=== PATIENT | female | born 1975 | race Caucasian/White ===

== ENCOUNTER → 2016-11-29 | Outpatient (CLI) | payer OTHER ==
[~2016-11-29] MED LIST: CLIN1GEL TOP; DOXY100T PO; ONDA4TAB10 SL; OXYC-57 PO
[2016-11-29 14:32] LABS: HEMATOCRIT 35.8 % (37-47); MEAN CELL VOLUME 91.3 fL (80-100); MEAN CORPUSCULAR HEMOGLOBIN 32.4 pg (25-34); MEAN CORPUSCULAR HGB CONC 35.5 g/dl (32-36); MEAN PLATELET VOLUME 11.3 fL (7.4-10.4); PLATELET COUNT 244 K/uL (130-400); RED BLOOD COUNT 3.92 M/uL (4.2-5.4); WHITE BLOOD COUNT 7.62 K/uL (4.8-10.8)
[2016-11-29 15:22] LABS: ALT/SGPT 30 U/L (12-78); BLOOD UREA NITROGEN 8 mg/dl (7-18); BUN/CREATININE RATIO 11.2 (10-20); CARBON DIOXIDE 23 mmol/L (21-32); CHLORIDE 107 mmol/L (98-107); CREATININE 0.68 mg/dl (0.60-1.20); GLUCOSE 116 mg/dl (70-99); POTASSIUM 3.5 mmol/L (3.5-5.1); SODIUM 141 mmol/L (136-145)
[2016-11-29 15:25] LABS: ALKALINE PHOSPHATASE 78 U/L (45-117); AST/SGOT 14 U/L (15-37)
== END | disposition home or self-care (01) ==
LOC: C.LAB 12:41
PROVIDERS: ATTEND Internal Medicine
DX: R10.13 Epigastric pain (principal)

== ENCOUNTER 2017-07-23 06:05 | Emergency (ER) | payer OTHER ==
[~2017-07-23] VITALS: Ht 165.1 cm; Wt 86.2 kg
[~2017-07-23 06:05] MED LIST changes: -DOXY100T PO; -ONDA4TAB10 SL; -OXYC-57 PO
[2017-07-23 06:08] VITALS: TEMP 36.8; Ht 165.1 cm; Wt 86.2 kg
[2017-07-23] MEDS ORDERED: DOXY100T PO (06:40)
[2017-07-23] MEDS ORDERED: LIDO/EPINEPHRINE/SOD BICARB 20 ML VIAL INFIL ONE (07:15)
[2017-07-23] MEDS ORDERED: OXYC-57 PO (07:59)
[2017-07-23] MEDS ORDERED: ONDA4TAB10 SL (07:59)
--- NOTE | 2017-07-23 08:00 | EMERGENCY ROOM VISIT NOTE ---
ED Visit Note First contact with patient: 07:02 CHIEF COMPLAINT: Infection on the left axilla times 1-2 days HISTORY OF PRESENT ILLNESS: Patient is a 42-year-old white female who presents emergency department for evaluation of left axillary pain, swelling and redness over the last 1-2 days. She has a history of hidradenitis, and is followed by dermatology for this. She has had large excisions, multiple steroid injections and I&Ds of both of her axillary area. She states that she had an I&D performed on the right side by her hydrographic engineer about 1-1/2-2 weeks ago. She is on chronic doxycycline 100 mg daily, and topical clindamycin ointment. She performs bleach baths. Patient has noted increased left axillary pain, tenderness and swelling in the last 1-2 days. She called her hydrographic engineer, they could not get her in for almost a week. She denies any drainage or discharge from the area. No fever, chills or constitutional signs of illness. She is taken ibuprofen and applied heat to the area. She rates her pain a 4/ 10. She is confident that she has another abscess. She denies any history of MRSA. REVIEW OF SYSTEMS: Review of systems as per HPI. All other systems reviewed were negative. 10 systems reviewed. PMH: Electronic medical records are reviewed and summarized as above/below. See Problem List. SOCIAL HISTORY: Patient lives at home. Nonsmoker. Is employed as a nurse at our facility. PHYSICAL EXAM: Vital Signs: Reviewed Nurse's notes. CONSTITUTIONAL: Patient is a well-appearing 42-year-old white female who is awake and alert and in no acute distress. Vital signs are stable. INTEGUMENTARY: Examination of the left axilla notes chronic scarring consistent with hidradenitis. She has a erythematous, tender, fluctuant area superiorly that appears consistent with a subcutaneous abscess. There is no lymphangitic streaking appreciated. EMERGENCY DEPARTMENT COURSE: The patient was seen and assessed as above. Her old records are reviewed. She has a history of hidradenitis and has had multiple abscesses which require I&D. She was agreeable to proceed with I&D today. The left axilla was prepped with Betadine and draped sterilely. 1% plain buffered lidocaine was infiltrated over the area of maximal fluctuance for field block. Using sterile technique, the abscess was incised with a number 11 scalpel blade. Purulent and sebaceous material drained and more was expressed. Culture was obtained and is pending. Abscess was packed with one- inch Kerlix dipped in Betadine. Bulky, observe an dressing was applied. Patient reports that when she she experiences an acute abscess for which she has an I&D, they do not change or add to her antibiotic regimen. I feel that this is reasonable as the I&D will likely be curative. Patient will continue local wound care measures, warm compresses and dressing changes. She is comfortable removing the packing material. Culture is pending and we can contact her if she requires any change in her antibiotic therapy. She was advised to follow-up with her hydrographic engineer for further care and management. The patient does not have any evidence for septic joint, I do not suspect sepsis , cellulitis, necrotizing fasciitis or deep space infection. Medication reconciliation: I attest that I have personally reviewed the patient' s current medication list. Blood pressure screening : Patient was found to have normal blood pressure on screening and does not require follow-up. Problem List Medical Problems: (1) Costochondritis Status: Resolved (2) Hidradenitis suppurativa Status: Chronic (3) Lactic acid acidosis Status: Resolved (4) Leukocytosis Status: Resolved Current/Historical Medications Scheduled Doxycycline Hyclate (Doxycycline Hyclate), 1 TAB PO DAILY Scheduled PRN Ondasetron Odt (Zofran Odt), 4 MG SL Q6H PRN for Nausea or Vomiting Oxycodone/Acetaminophen 5MG/325MG (Percocet 5MG/325MG), 1-2 TABS PO Q4 PRN for Pain Allergies Coded Allergies: No Known Allergies (Unverified , 07/23/17) Vital Signs Date Time Temp Pulse Resp B/P (MAP) Pulse Ox O2 Delivery O2 Flow Rate FiO2 07/23/17 08:11 75 16 117/79 98 07/23/17 07:26 64 17 123/80 100 Room Air 07/23/17 06:08 36.8 75 18 141/87 98 Room Air Departure Information Impression Primary Impression: Abscess of left axilla Additional Impression: Hidradenitis suppurativa of left axilla Prescriptions Oxycodone/Acetaminophen 5MG/325MG (PERCOCET 5MG/325MG) Tab 1-2 TABS PO Q4 Y for Pain, #20 TAB For Initial Treatment Prov: Zoe Mcgrath PA 07/23/17 Ondasetron Odt (ZOFRAN ODT) 4 Mg Tab 4 MG SL Q6H Y for Nausea or Vomiting, #20 TAB Prov: Zoe Mcgrath PA 07/23/17 Referrals Osbaldo Hollis D.O. (PCP) Patient Instructions My [facility] Additional Instructions Percocet 5/325 mg: Take 1-2 pills every four hours for breakthrough pain. Avoid alcohol, operating machinery or dangerous equipment, working on ladders or roofs, DRIVING, or situations where being under the influence may be dangerous. It is recommended to use an [id number]-bvk-[id number] stool softener such as Colace, 100mg twice daily while taking this medication to avoid constipation. Zofran(odansetron) tablets 4mg: Take one and allow it to dissolve in your mouth every four to six hours as needed for nausea or vomiting. Ibuprofen(Motrin, Advil) may be used for fever or pain. Use 600mg every six hours as needed. Take with food. Avoid using more than 2400mg in a 24 hour period. Do not use 2400mg per day for more than three consecutive days without physician direction. Prolonged inappropriate use can lead to stomach upset or ulcers. (AND/OR) Acetaminophen(Tylenol) may be used for fever or pain. Use 1000mg every six hours as needed. Avoid using more than 3000mg in a 24 hour period. Warm compresses to the affected area 4 times daily for 15-20 minutes. Dressing changes daily, more often if the dressing becomes saturated or soiled. Packing removal in 48 hours. Rest and drink plenty of fluids. Continue current medications. Return to the ER for severe pain, persistent fevers, spreading redness, or any worsening of your condition. Follow up with your hydrographic engineer next week for a recheck of the current condition. Problem Qualifiers
[2017-07-23 08:11] VITALS: BP 117/79; PULSE 75; O2SAT 98
== END 2017-07-23 08:13 | disposition home or self-care (01) ==
LOC: C.EDB 06:06 → C.EDA 08:13
DX: L02.412 Cutaneous abscess of left axilla (principal); L73.2 Hidradenitis suppurativa; M79.622 Pain in left upper arm

== ENCOUNTER 2018-01-23 14:35 | Emergency (ER) | payer OTHER ==
[~2018-01-23] VITALS: Ht 165.1 cm; Wt 83.6 kg
[~2018-01-23 14:35] MED LIST changes: -CLIN1GEL TOP; +DOXY100T PO; +ONDA4TAB10 SL; +OXYC-57 PO
[2018-01-23 14:38] VITALS: TEMP 36.5; Ht 165.1 cm; Wt 83.6 kg
[2018-01-23] MEDS ORDERED: OXYCODONE/ACETAMINOPHEN 5-325 TAB PO ONE (15:15)
[2018-01-23] MEDS ORDERED: ONDANSETRON 4MG OD TAB PO ONE (15:15)
[2018-01-23] MEDS ORDERED: XYLOCAINE 1%/SOD BICARB 20 ML VIAL INFIL ONE (15:15)
[2018-01-23] MEDS ORDERED: DOXY100C2 PO (15:30)
[2018-01-23] MEDS ORDERED: VARE1PAK15 PO (15:30)
[2018-01-23] MEDS ORDERED: OXYC-57 PO (18:08)
[2018-01-23] MEDS ORDERED: ONDA4TAB46 PO (18:08)
[2018-01-23 18:16] VITALS: BP 122/82; PULSE 77; O2SAT 96
[2018-01-23] MEDS ORDERED: PERCOCET HOME PACK PO ONE (18:30)
[2018-01-23] MEDS ORDERED: ONDANSETRON HOME PACK 4MG OD TAB PO ONE (18:30)
--- NOTE | 2018-01-24 13:49 | EMERGENCY ROOM VISIT NOTE ---
ED Visit Note First contact with patient: 14:42 CHIEF COMPLAINT: I have pain and redness under my right arm. HISTORY OF PRESENT ILLNESS: Ms. Santos is an 42-year-old white female who ambulates into the ED accompanied by boyfriend complaining of a possible abscess in the right axillary area. Historically patient reports she has a history of Hidradenitis suppurativa with recurrent abscesses in the bilateral axillary areas. She is being followed by makeup instructor and is currently on daily doxycycline. Patient reports she noticed a hard tender area in right axillary area to days ago. She reports the lesion is is slowly getting larger, more painful and tender. She does not know of any skin injury preceding the redness and has not observed any drainage from the red area. Currently associated with this lesion she reports she has been having a constant pressure sensation that is becoming more sharp. She rates her discomfort 7/10. Her pain is nonradiating. Her pain worsens with palpation and the rubbing of her bra. She has not identified any alleviating factors related to the pain. She has been continued her current prescribed antibiotics and gupq-moi-hyvpwfq pain medications without relief of her discomfort. She denies any associated fevers, chills, sweats, other skin eruptions or skin color changes, upper respiratory tract symptoms, shortness of breath, chest pain , decreased appetite, nausea, vomiting, right upper extremity weakness/numbness/ tingling REVIEW OF SYSTEMS: As noted above in History of Present Illness; all body systems reviewed with the patient found to be negative unless noted above otherwise. PAST MEDICAL HISTORY: As previously noted. CURRENT MEDICATION: As previously noted and Chantix. ALLERGIES TO MEDICATION: Patient denies. SOCIAL HISTORY: Patient is currently employed; she feels safe in her home environment; she admits to tobacco and alcohol use. PHYSICAL EXAM: Vital Signs: Date Time Temp Pulse Resp B/P (MAP) Pulse Ox O2 Delivery O2 Flow Rate FiO2 01/23/18 18:16 77 18 122/82 96 Room Air 01/23/18 14:38 36.5 72 16 134/89 98 Room Air General: 42 year-old white female in moderate distress due to pain, nontoxic appearing, afebrile and hemodynamically stable. Neurological: Awake, alert and oriented to person, place and time. Answering questions appropriately and following commands. Skin: Warm, dry and pink. Right Axillary Area: There is an indurated area measuring approximately 4.3 cm diameter. The central portion of this and rare area is fluctuant with pointing but no drainage. There is a zone of inflammation around it but no lymphangitis. No axillary lymphadenopathy. Thorax: Lungs sounds are clear to auscultation and equal bilaterally with symmetrical chest wall movement. No wheezing, rales or rhonchi. No increased respiratory effort. Abdomen: Flat, soft and nontender. Positive bowel sounds in all quadrants. No guarding or rigidity. Right Upper Extremity: No gross bony deformity. No tenderness over the bony structures of the shoulder. Full range of motion of the shoulder. Distal pulses, sensation and strength is intact throughout the extremity. ED COURSE: Patient is assessed as noted above. Patient's medication list was reviewed. Prior to the procedure patient received 1 5/325 mg Percocet tablet by mouth and 8 mg of Zofran ODT. Incision and Drainage: Verbal consent was obtained after the risks and benefits were explained. The skin was prepped with betadine and a sterile field set. The area surrounding the abscess was anesthetized with 9.8 ml of 1% buffered lidocaine. The abscess cavity was incised with a scalpel. Approximately 5 mL of purulent material was drained from the abscess and more was expressed. Aerobic cultures were obtained and are currently pending. The abscess cavity was sharply dissected with iris scissors to break up loculations and a small amount of additional purulent drainage was expressed. Copious irrigation was performed using sterile saline. The abscess cavity was cleaned out with a cotton tip applicator dipped in Betadine. Hemostasis was achieved. Iodoform gauze packing was inserted into the abscess. A sterile dressing was applied. No complications and the patient tolerated the procedure well. Patient was educated about her condition and instructed on her treatment plan; she verbalized understanding and agreement with this plan. IMPRESSION: Abscess of the right axillary area. DISPOSITION: Patient discharged to home in stable condition accompanied by her boyfriend; prior to departure she was reassessed and subjectively reported she was feeling better and rated her discomfort 5/10. PLAN: Patient was encouraged to continue her antibiotics as prescribed. Patient was prescribed Percocet and Zofran and instructed on their use; the state database was checked and no red flags were noted and she was given appropriate narcotic precautions. Patient was encouraged to keep her bandage dry and intact for the next 48 hours. Patient was encouraged to follow-up with her PCP or makeup instructor or return to the ED in 36-48 hours for recheck and possible packing removal. Patient was educated on signs of infection and encouraged return to the ED for any development of worsening signs of infection including red streaking, fevers , increasing redness/swelling or any new/concerning symptoms.
== END 2018-01-23 18:23 | disposition home or self-care (01) ==
LOC: C.EDB 14:37 → C.EDD 18:23
DX: L02.411 Cutaneous abscess of right axilla (principal); Z79.2 Long term (current) use of antibiotics; Z79.899 Other long term (current) drug therapy; Z72.0 Tobacco use

== ENCOUNTER → 2018-05-29 | Outpatient (CLI) | payer OTHER ==
[~2018-05-29] MED LIST changes: +DOXY100C2 PO; -DOXY100T PO; +GADAVIST IV PRN; -ONDA4TAB10 SL; +VARE1PAK15 PO
--- NOTE | 2018-05-29 12:11 | DIAGNOSTIC IMAGING REPORT ---
L INJECTION HIP PRE MRI CLINICAL HISTORY: LEFT HIP ARTHROGRAM PRE MRI COMPARISON STUDY: None FLUOROSCOPY TIME: 13 seconds. FINDINGS: Following informed consent and description of the procedure, a 25-gauge needle was inserted to the left hip joint space. This is followed by the injection of gadolinium saline mixture. There are no immediate complications. IMPRESSION: Successful pre-MRI injection left hip. The above report was generated using voice recognition software. It may contain grammatical, syntax or spelling errors. Electronically signed by: De Duarte M.D. 05/29/2018 12:10 PM Dictated Date/Time: 05/29/2018 12:09 PM
--- NOTE | 2018-05-29 14:19 | DIAGNOSTIC IMAGING REPORT ---
LEFT HIP MRI with INTRA-ARTICULAR CONTRAST HISTORY: LEFT HIP PAIN EVAL LABRAL TEAR TECHNIQUE: Multiplanar multisequence MRI of the left hip was performed following the intra-articular injection of contrast. COMPARISON STUDY: Left hip 04/29/2018. FINDINGS: There is a serpiginous focus of hypointensity within the superior aspect of the femoral head with a small subchondral fracture which is fluid-filled. These findings are consistent with avascular necrosis. The total area of avascular necrosis measures approximately 3 cm. No significant loss of height within the femoral head at this time. Marrow edema within the femoral head/neck is likely reactive. Mild marrow edema within the left acetabulum which is likely reactive. Mild cartilage thinning within the superior aspect of the left hip consistent with degenerative change. Truncated appearance to the anterior superior labrum consistent with a small tear/degeneration. Scattered images also demonstrate a small focus of avascular necrosis within the right femoral head. Wire Weaver Helper images also suggest the possibility of a thickened distal ileal loop of bowel. IMPRESSION: 1. Left femoral head avascular necrosis with associated small subchondral fracture. No loss of height within the femoral head at this time. 2. Small focus of avascular necrosis seen within the right femoral head. 3. Truncated appearance to the anterior superior labrum consistent with a small tear/degeneration. 4. Mild left hip osteoarthritis. 5. Wire Weaver Helper images suggest the possibility of a thickened loop of distal ileum. Clinical correlation recommended to assess for inflammatory bowel disease. Electronically signed by: Juan Monae M.D. 05/29/2018 2:17 PM Dictated Date/Time: 05/29/2018 2:01 PM
== END | disposition home or self-care (01) ==
LOC: C.MRIBC 10:48
PROVIDERS: ATTEND Family Medicine
DX: M25.552 Pain in left hip (principal); M87.9 Osteonecrosis, unspecified

== ENCOUNTER 2018-06-13 14:12 | Emergency (ER) | payer OTHER ==
[~2018-06-13] VITALS: Ht 165.1 cm; Wt 84.1 kg
[~2018-06-13 14:12] MED LIST changes: -GADAVIST IV PRN
[2018-06-13 14:21] VITALS: TEMP 37.1; Ht 165.1 cm; Wt 84.1 kg
[2018-06-13] MEDS ORDERED: ONDANSETRON INJ 2 MG/ML 2 ML VIAL IV STA (14:49)
[2018-06-13] MEDS ORDERED: LIDOCAINE 1% BUFFERED INJ 20 ML VIAL INFIL ONE (15:00)
[2018-06-13] MEDS ORDERED: MoRPHine SULFATE 4 MG/ML 1 ML CARP\\VIAL IV STA (15:10)
[2018-06-13] MEDS ORDERED: OXYC-57 PO (15:53)
[2018-06-13] MEDS ORDERED: ONDA4TAB65 PO (15:53)
[2018-06-13 16:07] VITALS: BP 140/97; PULSE 88; O2SAT 99
--- NOTE | 2018-06-13 19:28 | EMERGENCY ROOM VISIT NOTE ---
ED Visit Note First contact with patient: 14:34 CHIEF COMPLAINT: Painful mass in the right axilla HISTORY OF PRESENT ILLNESS: This 43-year-old white female patient noticed a hard tender area in her right axilla 6 days ago. It is slowly getting larger, more painful and tender. No fever, chills, nausea, vomiting, or loss of appetite. There has been no drainage from the area. She has a history of hidradenitis suppurativa. She has had numerous cysts in the axilla. There was no injury to the area preceding the infection. She has tried warm soaks without improvement. She has an appointment to see her PCP on Friday but felt she could not wait. Pain is 9/10. Her significant other accompanies her today. She is requesting pain medication. She does take Vibramycin daily to suppress the hidradenitis suppurativa. REVIEW OF SYSTEMS: REVIEW OF SYSTEM: HEENT: No dizziness, visual problems, hearing loss, or tinnitus. There is no difficulty swallowing and no oral lesions are present. LYMPH: No adenopathy. PULMONARY: No cough, shortness of breath, sputum production or hemoptysis. CARDIOVASCULAR: No chest pain, palpitations, shortness of breath or peripheral edema. GASTROINTESTINAL: No diarrhea, constipation, nausea, vomiting, or abdominal pain. GENITOURINARY: No dysuria, frequency, urgency or nocturia. NEUROLOGIC: No weakness, muscle tenderness, epilepsy or history of neurological problems. MUSCULOSKELETAL: No history of joint tenderness/swelling. Positive history of arthritis and arthralgias. SKIN: No rashes. PSYCHIATRIC: No history of depression or mental illness. ENDOCRINE: No history of diabetes, thyroid disorders, or abnormal hair growth. PMH: Supplemental sheet was reviewed and signed. Previous surgeries: None Medical History: Significant for AVN of both hips and hidradenitis suppurativa Current medications: Reviewed and filed in patient's chart Allergies: NKDA Family history: Noncontributory Last tetanus: Unknown SOCIAL HISTORY: Currently unemployed. Single. No tobacco use. PHYSICAL EXAM: Vital Signs: Afebrile. Reviewed and filed in patient's chart. General: Well-developed, well-nourished, middle-aged white female, in obvious discomfort. No acute distress. Laying on the bed. Alert and oriented Skin: Warm and dry with good turgor. No rashes. No ecchymosis. The patient is not diaphoretic. No abrasions. There is an indurated area in the right axilla which measures about 5 cm in diameter. It is firm but there is no pointing or drainage. There is a red zone of inflammation around it but no lymphangitis. It is warm to touch. It is slightly anterior toward the axillary crease. Multiple enlarged lymph nodes are palpable. Dimpling of the skin is present consistent with hidradenitis suppurativa. Musculoskeletal: Intact motor function of the right shoulder and elbow. Neurologic: Gross sensation is intact across the right arm by soft touch. EMERGENCY DEPARTMENT COURSE: Informed oral consent was obtained for incision and drainage. Area was prepped with Betadine and draped with a sterile towel. Wound was anesthetized using 4ml 1% plain lidocaine in a direct infiltration. # 11 blade was used to sharply incised the abscess. Copious purulent material was expressed from the wound. The abscess was probed using iris scissors to break up interior loculations. Multiple large waxy pieces of material were also removed. Wound was irrigated copiously using Betadine diluted with normal sterile saline under jet spray lavage. It was then packed using sterile ribbon gauze. Outer dressing was placed. DIAGNOSIS: Skin Abscess of the right axilla DISCHARGE INSTRUCTIONS & TREATMENT: Patient was educated regarding today's findings. Conservative care measures were discussed. IV was established. Patient was given morphine 4 mg IV and Zofran 4 mg IV for pain control. She was sent home under the care of her significant other. Change the dressing if it becomes soiled or blood-stained and remove the drain in about 48 hours. Prescription was given for Percocet 5 mg to be used 1-2 tablets every 6 hours as needed for severe pain. Use Tylenol and Motrin every 6 hours for mild pain.. Return if any problems such as fever or increasing pain develop. See a general surgeon if an abscess re-occurs in the same area in the future for consideration of excision of the cyst. Follow-up with her PCP on Friday as scheduled for packing removal. Skin abscess handout was provided. Warm moist compresses to the area several times a day to promote drainage. (Laci Jack,P.A.) First contact with patient: 14:34 (Tony Romeo M.D.) Problem List Medical Problems: (1) Costochondritis Status: Resolved (2) Hidradenitis suppurativa Status: Chronic (3) Lactic acid acidosis Status: Resolved (4) Leukocytosis Status: Resolved (Tony Romeo M.D.) Current/Historical Medications Scheduled Doxycycline Hyclate (Vibramycin), 100 MG PO DAILY Varenicline Tartrate (Chantix Starting Month Pa), 1 TAB PO DAILY Scheduled PRN Ondansetron Hcl (Zofran), 1 TAB PO Q6H PRN for Nausea Oxycodone/Acetaminophen 5MG/325MG (Percocet 5MG/325MG), 1-2 TABS PO Q6H PRN for Pain Oxycodone/Acetaminophen 5MG/325MG (Percocet 5MG/325MG), 1-2 TABLETS PO Q6 PRN for Pain Allergies Coded Allergies: No Known Allergies (Unverified , 07/23/17) Vital Signs Date Time Temp Pulse Resp B/P (MAP) Pulse Ox O2 Delivery O2 Flow Rate FiO2 06/13/18 16:07 88 18 140/97 99 06/13/18 14:21 37.1 82 18 125/79 98 Room Air (Tony Romeo M.D.) Medications Administered Medications (Trade) Dose Ordered Sig/Ethan Route Start Time Stop Time Status Last Admin Dose Admin Ondansetron HCl (Zofran Inj) 4 mg NOW STAT IV 06/13/18 14:49 06/13/18 14:51 DC 06/13/18 15:19 4 MG Morphine Sulfate (MoRPHine SULFATE INJ) 4 mg NOW STAT IV 06/13/18 15:10 06/13/18 15:12 DC 06/13/18 15:19 4 MG (Tony Romeo M.D.) Departure Information Impression Primary Impression: Axillary hidradenitis suppurativa Additional Impression: Abscess of axilla, right Dispostion Home / Self-Care Condition GOOD Prescriptions Oxycodone/Acetaminophen 5MG/325MG (PERCOCET 5MG/325MG) Tab 1-2 TABLETS PO Q6 Y for Pain, #15 TAB PAIN Prov: Laci Jack,P.A. 06/13/18 Ondansetron Hcl (ZOFRAN) 4 Mg Tab 1 TAB PO Q6H Y for Nausea, #10 TAB 1 Refill Prov: Laci Jack,P.A. 06/13/18 Forms WORK / SCHOOL INSTRUCTIONS, HOME CARE DOCUMENTATION FORM, SPECIAL NARCOTICS INSTRUCTIONS, MOTRIN USE, TYLENOL USE, IMPORTANT VISIT INFORMATION Patient Instructions My [facility] Additional Instructions Have the wick removed on Friday at your PCP appointment Keep the area covered with clean gauze-change as needed Warm moist compresses to the area several times per day to promote drainage Tylenol and Motrin every 6 hours as needed for mild discomfort Percocet every 6 hours as needed for more severe pain-no driving Zofran every 6 hours as needed for nausea Return to the ED for any acute worsening of symptoms Problem Qualifiers
== END 2018-06-13 16:09 | disposition home or self-care (01) ==
LOC: C.EDB 14:14 → C.EDD 16:09
DX: L73.2 Hidradenitis suppurativa (principal); L02.411 Cutaneous abscess of right axilla; Z79.899 Other long term (current) drug therapy